=== PATIENT | male | born 1990 | race African-American/Black ===

== ENCOUNTER 2016-11-04 10:10 | Emergency (ER) | payer SELFPAY ==
[2016-11-04 10:59] VITALS: BP 124/64; BMI 26.4
--- NOTE | 2016-11-04 11:18 | DR.GENAD ---
HPI - PCP Primary Care Physician: nfd - Complaint/Symptoms Chief Complaint:: bumps all over body - Nurses notes reviewed Nurses Notes Review: Yes - Source History Provided: Patient - Mode of Arrival Mode of Arrival: Ambulatory - Timing Onset of Chief Complaint: 11/02/16 Came on: Gradually - Duration Duration: Constant How lon Duration: Days - Location Location: generalized - Severity Severity: Moderate - Other History Other History: using new detergent last week PMH - PMH Past Medical History: No Past Surgical History: No - Family History History of Family Medical Conditions: No - Social History Does patient currently use any type of tobacco product: Yes Have you used tobacco products in the last 12 months: Yes Type of Tobacco Use: Cigars Does any household member use tobacco: No Alcohol Use: None Do you use any recreational Drugs:: No Lives With: Family Lives Where: Home - infectious screening In the last 2 months have you had wt loss of >10#?: NO Have you had fever, night sweats or hemotysis?: No Have you traveled outside the country in the last 6 months?: No Isolation: Standard ROS - Review of Systems Constitutional: No Symptoms Reported Eyes: No Symptoms Reported ENTM: No Symptoms Reported Respiratoy: No Symptoms Reported Cardiovascular: No Symptoms Reported Gastrointestinal/Abdominal: No Symptoms Reported Genitourinary: No Symptoms Reported Neurological: No Symptoms Reported Musculoskeletal: No Symptoms Reported Integumentary: Rash Hematologic/Lymphatic: No Symptoms Reported Endocrine: No Symptoms Reported Psychiatric: No Symptoms Reported PE - Vital Signs Vitals: Temperature 98.9 F Pulse Rate 68 Respiratory Rate 18 Blood Pressure 124/64 O2 Sat by Pulse Oximetry 96 - General Limitations: No Limitations General Appearance: Alert, In No Apparent Distress - Head Head Exam: Normal Inspection - Eyes Eye exam: Normal Appearance - ENT ENT Exam: Normal Exam External Ear Exam: Normal External Inspection Nose Exam: Normal Nose Exam Mouth Exam: Normal Inspection Throat Exam: Normal Inspection - Neck Neck Exam: Normal Inspection - Chest Chest Inspection: Normal Inspection - Respiratory Respiratory Exam: Normal Lung Sounds Bilat. negative: Accessory Muscle Use Respiratory Exam: Bilateral Clear to Auscultation - Cardiovascular Cardiovascular Exam: Regular Rate - Extremities Extremities Exam: Normal Inspection - Back Back Exam: Normal Inspection - Neurologic Neurological Exam: Alert, Oriented X3, CN II-XII Intact - Psychiatric Psychiatric Exam: Normal Mood - Skin Skin Exam: Intact, Rash (scattered papules over most of body). negative: Normal Color - Diagnosis Discharge Problem: Contact dermatitis - Discharge Plan Condition: Stable - Follow ups/Referrals Follow ups/Referrals: [facility],None [Primary Care Provider] - 3 days - Instructions
[2016-11-04] MEDS ORDERED: BENADRYL CAP 50 MG PO ONE (11:28)
[2016-11-04] MEDS ORDERED: DECADRON INJ IM ONE (11:28)
[2016-11-04] MEDS ORDERED: DECADRON INJ ONE (11:30)
[2016-11-04] MEDS ORDERED: BENADRYL CAP/TAB 25 MG PO ONE (11:30)
== END 2016-11-04 11:40 | disposition home or self-care (01) ==
LOC: ER 10:48
DX: L25.8 Unspecified contact dermatitis due to other agents (principal)
CPT/HCPCS: 96372; 99282; J1100